=== PATIENT | female | born 2000 | race Caucasian/White ===

== ENCOUNTER 2023-04-15 10:32 | Emergency (ER) | payer OTHER ==
[2023-04-15 11:20] LABS: BILIRUBIN,URINE NEGATIVE (NEGATIVE); GLUCOSE, URINE (UA) NEGATIVE (NEGATIVE); KETONES,URINE (UA) NEGATIVE (NEGATIVE); LEUKOCYTE ESTERASE, URINE NEGATIVE (NEGATIVE); NITRITE,URINE NEGATIVE (NEGATIVE); OCCULT BLOOD,URINE NEGATIVE (NEGATIVE); PROTEIN,URINE NEGATIVE (NEGATIVE); UROBILINOGEN,URINE 0.2 (NORMAL) E.U./dL (NORMAL)
[2023-04-15 11:22] LABS: CLARITY,URINE CLEAR (CLEAR); HCG UR QUAL NEGATIVE
[2023-04-15 11:24] LABS: BASOPHILS % (AUTO) 0.2 %; EOSINOPHILS # (AUTO) 0.1 10^3/uL (0.0-0.7); HCT - HEMATOCRIT 39.8 % (37.0-47.0); LYMPHOCYTES # (AUTO) 2.1 10^3/uL (1.5-3.5); LYMPHOCYTES % (AUTO) 42.7 %; MEAN CORPUSCULAR HEMOGLOBIN 26.5 pg (27.0-31.0); MEAN CORPUSCULAR HGB CONC 32.7 g/dL (32.0-36.0); MEAN CORPUSCULAR VOLUME 81.2 fL (81.0-99.0); MONOCYTES # (AUTO) 0.4 10^3/uL (0.0-1.0); NEUTROPHILS # (AUTO) 2.4 10^3/uL (1.5-6.6); NEUTROPHILS % (AUTO) 48.1 %; PLT - PLATELET COUNT 234 10^3/uL (130-450); RED CELL DISTRIBUTION WIDTH 15.9 % (12.0-15.0); WHITE BLOOD COUNT 4.9 x10^3/uL (4.8-10.8)
--- NOTE | 2023-04-15 11:26 | ED Physician Documentation ---
PD HPI ABD PAIN - Stated complaint Stated Complaint: SHARP ABD PX - Chief complaint Chief Complaint: Abd Pain - History obtained from History obtained from: Patient - History of Present Illness Timing - onset: How many days ago (few) Timing - duration: Days (few) Timing - details: Abrupt onset, Still present, Waxing and waning Quality: Cramping, Aching, Pain Location: LLQ Radiation: No: Lower back, Left flank Associated symptoms: No: Fever, Nausea, Vomiting, Diarrhea, Dysuria, Hematuria, Vaginal bleeding, Vaginal dc Review of Systems Constitutional: denies: Fever, Chills GI: denies: Nausea, Vomiting, Diarrhea : reports: LMP (2 weeks ago and normal), Control (OCPs). denies: Dysuria, Frequency, Discharge, Irregular menses Skin: denies: Rash, Lesions PD PAST MEDICAL HISTORY - Past Medical History Past Medical History: No - Past Surgical History Past Surgical History: No - Present Medications Home Medications: Ambulatory Orders Medication Instructions Recorded Confirmed Norgestimate-Ethinyl Estradiol 1 each PO DAILY 04/15/23 04/15/23 [Tri-Sprintec] - Allergies Allergies/Adverse Reactions: Allergies Allergy/AdvReac Type Severity Reaction Status Date / Time No Known Drug Allergies Allergy Verified 04/15/23 10:49 - Social History Does the pt smoke?: No Smoking Status: Never smoker PD ED PE NORMAL - Vitals Vital signs reviewed: Yes - General General: Alert and oriented X 3, No acute distress, Well developed/nourished - Cardiac Cardiac: RRR, No murmur - Respiratory Respiratory: Clear bilaterally - Abdomen Abdomen: Normal bowel sounds, Soft, Non distended, No organomegaly, Other (tender LLQ with some local guarding. No percussion nor rebound. RLQ not tender. ) - Female Female : Deferred - Rectal Rectal: Deferred - Back Back: No CVA TTP - Derm Derm: Normal color, Warm and dry - Neuro Neuro: Alert and oriented X 3, No motor deficit, Normal speech Results - Vitals Vitals: Oxygen O2 Source Room air - Labs Labs: Laboratory Tests 04/15/23 04/15/23 04/15/23 11:10 11:18 11:18 WBC 4.9 RBC 4.90 Hgb 13.0 Hct 39.8 MCV 81.2 MCH 26.5 L MCHC 32.7 RDW 15.9 H Plt Count 234 MPV 11.0 H Neut # (Auto) 2.4 Lymph # (Auto) 2.1 Carver # (Auto) 0.4 Eos # (Auto) 0.1 Baso # (Auto) 0.0 Absolute Nucleated RBC 0.00 Nucleated RBC % 0.0 Sodium 136 Potassium 4.0 Chloride 105 Carbon Dioxide 26 Anion Gap 5.0 L BUN 9 Creatinine 0.6 Estimated GFR (MDRD) 124 Glucose 87 Calcium 9.1 Total Bilirubin 0.4 AST 13 ALT 9 L Alkaline Phosphatase 59 Total Protein 7.4 Albumin 4.1 Globulin 3.3 Albumin/Globulin Ratio 1.2 Lipase 36 Urine Color YELLOW Urine Clarity CLEAR Urine pH 6.0 Ur Specific Brinkley 1.025 Urine Protein NEGATIVE Urine Glucose (UA) NEGATIVE Urine Ketones NEGATIVE Urine Occult Blood NEGATIVE Urine Nitrite NEGATIVE Urine Bilirubin NEGATIVE Urine Urobilinogen 0.2 (NORMAL) Ur Leukocyte Esterase NEGATIVE Ur Microscopic Review NOT INDICATED Urine Culture Comments NOT INDICATED Urine HCG, Qual NEGATIVE - Rads (name of study) pelvic US Relevant Findings:: Prelim report reviewed (normal exam. Normal blood flow. No cysts nor free fluid. ) PD Medical Decision Making - ED course Complexity details: reviewed results (normal pelvic US and UA, neg HCG. Normal blood count. Not clear the cause of the pain. Not hurting in RLQ and no change in stools. I am not feeling CT would be needed. Does not sound like ureteral stone. ), re-evaluated patient (she just wanted to use OTC Ibuprofen and Tylenol. Declined other meds/scripts. ), considered differential (has had int ermittent LLQ/pelvic pains over the past year for few days at a time. Not corresponding with menses nor mid cycle (more random). Current pain is timed with mid cycle. states family history of endometriosis and ovarian cysts. She has not been evaluated for the pains previously.), d/w patient ED course: current pain could be mid cycle ovarian pain. But does not correlate with timing of other episodes (had not been mid cycle). Does not time for endometrial pain. Unclear cause. Can follow up with [facility]. Has upcoming appt with PCP and can get referral. Departure - Departure Disposition: 01 Home, Self Care Clinical Impression: Lower abdominal pain Condition: Stable Record reviewed to determine appropriate education?: Yes Instructions: ED Pelvic Pain [facility] Comments: Your blood count shows a normal white count. The hemoglobin portion is normal as well so you are not anemic at this time. Basic chemistry panel and kidney function is normal as well. Your urine does not show any signs of infection. Your test is negative. The preliminary on the ultrasound is normal appearance of the pelvic structures without any obvious cause for the pain. Given the timing of it currently at midcycle, it is possible to be some inflammation through the ovaries or such. The pattern of your pains over the last year the not seem to correspond with the timing of your periods and as such is less likely to sound like endometriosis. Consider other potential causes such as ovarian pain or sometimes could be cyst related or such. Again no obvious signs of abnormality based on your lab tests or ultrasound currently. As such I would consider anti-inflammatory such as ibuprofen or naproxen 2-3 [id number] tablets twice daily with food for the next several days to week. Add Tylenol 500 to 650 mg 4 times daily if needed for pain as well. Follow-up with your primary care as scheduled in May. Otherwise call them for sooner appointment and follow-up if not improved well over the next few days. Return to the ER as needed. Forms: PCP List Discharge Date/Time: 04/15/23 14:23
[2023-04-15 11:36] LABS: ALBUMIN 4.1 g/dL (3.2-5.5); ALBUMIN/GLOBULIN RATIO 1.2 (1.0-2.2); BILIRUBIN,TOTAL 0.4 mg/dL (0.2-1.0); CALCIUM 9.1 mg/dL (8.5-10.3); CREATININE 0.6 mg/dL (0.6-1.3); TOTAL PROTEIN 7.4 g/dL (6.4-8.9)
[2023-04-15] MEDS ORDERED: ACETAMINOPHEN 325 MG TABLET PO STA (14:07)
[2023-04-15] MEDS ORDERED: IBUPROFEN 600 MG TABLET PO STA (14:07)
[2023-04-15 14:27] VITALS: BP 127/78; O2SAT 99
--- NOTE | 2023-04-15 16:04 | Ultrasound Report ---
PROCEDURE: Pelvic w/Transvag+Doppler Comp INDICATIONS: pelvic pain, L TECHNIQUE: Real-time scanning was performed of the pelvic organs, with image documentation. Additional endovagi nal scanning was necessary due to incomplete visualization of the adnexal and endometrial structures by transabdominal scanning. Doppler interrogation was performed of the ovaries bilaterally. COMPARISON: None. FINDINGS: Uterus: Uterus is anteverted and normal in size at 7.1 x 3.2 x 3.9 cm. The myometrium is homogeneou s. The endometrium measures 3 mm in combined thickness. Ovaries: The right ovary measures 2.6 x 1.7 x 1.7 cm, with a calculated ovarian volume of 3.9 cc. T he left ovary measures 3.1 x 1.5 x 1.5 cm, with a calculated ovarian volume of 3.78 cc. Appropriate blood flow to the ovaries with Doppler interrogation. Less than 12 follicles can be seen in each ov lenora. No adnexal masses are seen. No cystic lesions measuring greater than 3 cm. Other: No pathologic free abdominal or pelvic fluid. IMPRESSION: 1. Unremarkable pelvic ultrasound. Appropriate blood flow is visualized within the bilateral ovaries. Reviewed by: Pamela Vaughn MD on 04/15/2023 2:17 PM PDT Approved by: Pamela Vaughn MD on 04/15/2023 2:17 PM PDT Station ID: [id number]
== END 2023-04-15 14:23 | disposition home or self-care (01) ==
LOC: ED 10:32
DX: R10.32 Left lower quadrant pain (principal)
CPT/HCPCS: 36415; 76830; 76856; 80053; 81003; 81025; 83690; 85025; 93975; 99283; 99284; A9270; 81001; 87086

== ENCOUNTER 2023-07-14 12:45 | Outpatient (CLI) | payer OTHER ==
[~2023-07-14 12:45] MED LIST: GADOTERATE MEGLUMINE 2.5 MMOL/5 ML VIAL ONE; GADOTERATE MEGLUMINE 5 MMOL/10 ML VIAL ONE
[2023-07-14] MEDS ORDERED: GADOTERATE MEGLUMINE 5 MMOL/10 ML VIAL IVP ONE (13:55)
--- NOTE | 2023-07-14 20:02 | MRI Report ---
PROCEDURE: Pelvis W/WO INDICATIONS: PELVIC PAIN CONTRAST: CLARISCAN 12.6 ML TECHNIQUE: Coronal ultra fast SE, sagittal breath-hold T2 FSE; axial T1 FSE with and without fat saturation thro ugh the pelvis. Optional long- and short-axis uterine nonbreath-hold T2 FSE through the uterus. Sag ittal or axial dynamic ultra fast GE during administration of contrast. Post-contrast axial or coron al ultra fast GE / 2-D spoiled GE with fat saturation from the iliac crests to the symphysis. Restric yamileth diffusion weighted imaging and ADC. COMPARISON: Pelvic ultrasound 04/15/2023. FINDINGS: Image quality: Excellent. Uterus: Uterus is normal in size. Endometrium is normal in thickness measuring 5 mm. Junctional zo ne is normal in thickness at 12 mm or less. No fibroids. Adnexa: Both ovaries are normal in size, without suspicious cystic or solid lesions. Small follicles bilaterally. Urinary system: Bladder wall is normal in thickness. Distal ureters are non distended. Urethra dunia ears normal in morphology. Nodes and vessels: No pelvic or inguinal adenopathy by size criteria. Iliac vessels are normal in s ize. Bowel and peritoneum: No pathologic free pelvic fluid. Inferior colon and small bowel loops are nor mal in caliber. Normal appendix. Soft tissues: No inguinal hernias. No findings of pelvic floor incompetence in the absence of provo cation. Bones: Marrow demonstrates normal overall signal. IMPRESSION: 1. No source for pelvic pain is identified. No ovarian cyst. No free fluid. 2. Endometrial thickness measures 5 mm. 3. No uterine adenomyosis. Reviewed by: Yonas Lr MD on 07/14/2023 8:00 PM PST Approved by: Yonas Lr MD on 07/14/2023 8:00 PM PST Station ID: [id number]
== END 2023-07-14 12:46 | disposition home or self-care (01) ==
LOC: DI 12:45
PROVIDERS: ATTEND Nurse Practitioner
DX: R10.2 Pelvic and perineal pain (principal); N80.9 Endometriosis, unspecified

== ENCOUNTER 2023-07-14 12:51 | Outpatient (CLI) | payer OTHER ==
--- NOTE | 2023-07-14 15:54 | Ultrasound Report ---
LIMITED ULTRASOUND OF LEFT BREAST: 07/14/2023 CLINICAL: Nipple discharge, both breasts, not bloody. No prior exams were available for comparison. Color flow ultrasound of the left breast retroareolar was performed. Natarajan scale images of the real- time examination were reviewed. No significant abnormalities were seen sonographically in the left breast. IMPRESSION: NEGATIVE There is no sonographic evidence of malignancy. There is no abnormality seen in the left breast to correspond with the non-bloody discharge from the nipple. See contralateral breast report for recommendations. This exam was interpreted at Station ID: [id number]. Electronically Signed By: Keshawn Desai M.D. lc/:07/14/2023 14:29:29 letter sent: No_Letter Ultrasound BI-RADS: 1 Negative BI-RADS CATEGORY: (1) - 1 Unspecified - other recall n/a LATERALITY: (B)
--- NOTE | 2023-07-14 15:54 | Ultrasound Report ---
LIMITED ULTRASOUND OF RIGHT BREAST: 07/14/2023 CLINICAL: Nipple discharge, both breasts, not bloody. No prior exams were available for comparison. Color flow ultrasound of the right breast retroareolar was performed. No significant abnormalities were seen sonographically in the right breast. IMPRESSION: NEGATIVE There is no sonographic evidence of malignancy. There is no abnormality seen in the right breast to correspond with the non-bloody discharge from the nipple, however, clinical correlation and clinical followup are recommended. Further clinical workup should be initiated for galactorrhea. If the discharge becomes bloody, consider initial repeat imaging with ultrasound and possible diagnos tic mammogram This exam was interpreted at Station ID: [id number]. Electronically Signed By: Keshawn Desai M.D. lc/:07/14/2023 14:31:34 letter sent: No_Letter Ultrasound BI-RADS: 1 Negative BI-RADS CATEGORY: (1) - 1 Unspecified - other recall n/a LATERALITY: (B)
== END 2023-07-14 12:52 | disposition home or self-care (01) ==
LOC: DI 12:51
PROVIDERS: ATTEND Nurse Practitioner
DX: O92.6 Galactorrhea (principal); R10.2 Pelvic and perineal pain; N80.9 Endometriosis, unspecified
CPT/HCPCS: 72197; 76642; A9575

== ENCOUNTER 2024-02-10 11:54 | Outpatient (CLI) | payer OTHER ==
[2024-02-10 18:58] LABS: THYROID STIMULATING HORMONE 1.9 uIU/mL (0.34-5.60)
[2024-02-10 19:00] LABS: HCT - HEMATOCRIT 40.4 % (37.0-47.0); HGB - HEMOGLOBIN 12.8 g/dL (12.0-16.0); MEAN CORPUSCULAR HEMOGLOBIN 27.8 pg (27.0-31.0); MEAN CORPUSCULAR HGB CONC 31.7 g/dL (32.0-36.0); MEAN CORPUSCULAR VOLUME 87.6 fL (81.0-99.0); MEAN PLATELET VOLUME 12.2 fL (7.9-10.8); RED BLOOD COUNT 4.61 10^6/uL (4.20-5.40); WHITE BLOOD COUNT 5.6 x10^3/uL (4.8-10.8)
[2024-02-10 19:04] LABS: FERRITIN 3.9 ng/mL (11.0-306.8)
[2024-02-10 19:05] LABS: PROLACTIN 10.36 ng/mL
== END 2024-02-10 11:55 | disposition home or self-care (01) ==
LOC: LAB.N 11:54
PROVIDERS: ATTEND Nurse Practitioner
DX: O92.6 Galactorrhea (principal); Z13.0 Encounter for screening for diseases of the blood and blood-forming organs and certain disorders involving the immune mechanism
CPT/HCPCS: 36415; 82728; 84146; 84443; 85027